=== PATIENT | female | born 1960 | race Two or more races ===

== ENCOUNTER 2019-12-29 09:03 | Emergency (ER) | payer OTHER ==
[~2019-12-29] VITALS: Ht 154.9 cm; Wt 90.7 kg
--- NOTE | 2019-12-29 09:30 | NUR ---
PT BIB HIS NEIGHBOR AND . C/O CHEST PAIN 07/01. VS CHECKED. HOOKED ON MONITOR EKG DONE. AWAITING MD HAM
--- NOTE | 2019-12-29 09:40 | NUR ---
COVID SWAB DONE. SENT TO LAB.
--- NOTE | 2019-12-29 09:40 | NUR ---
Alessandra ozuna in ED - 12/29/19 at 0943 by KEYSHA YANELIS DAY DONE AWAITING MD HAM.
--- NOTE | 2019-12-29 09:42 | NUR ---
Chest Xray in progress at BS.
[2019-12-29 09:48] LABS: BASOPHILS # (AUTO) 0.1 /CMM (0.0-0.2); BASOPHILS % (AUTO) 0.7 % (0.0-2.0); EOSINOPHILS % (AUTO) 1.2 % (0.0-6.0); HEMATOCRIT 37 % (33-45); HEMOGLOBIN 12.1 g/dL (11.5-14.8); LYMPHOCYTES # (AUTO) 2.9 /CMM (0.8-4.8); LYMPHOCYTES % (AUTO) 36.4 % (20.0-44.0); MEAN CORPUSCULAR HGB CONC 33 g/dl (31.0-36.0); MEAN CORPUSCULAR VOLUME 89 fL (82-100); MONOCYTES # (AUTO) 0.3 /CMM (0.1-1.30); MONOCYTES % (AUTO) 3.8 % (2.0-12.0); NEUTROPHILS # (AUTO) 4.6 /CMM (1.8-8.9); NEUTROPHILS % (AUTO) 57.9 % (43.0-81.0); PLATELET COUNT (AUTO) 304 /CMM (150-450); RED BLOOD CELL COUNT(AUTO) 4.11 MIL/uL (4.0-5.2); WHITE BLOOD COUNT (AUTO) 7.9 K/uL (4.3-11.0)
[2019-12-29 09:57] LABS: CALCIUM, SERUM 9.6 mg/dL (8.5-10.1); CARBON DIOXIDE 23 mmol/L (21-32); CHLORIDE 103 mmol/L (98-107); CREATININE 0.9 mg/dL (0.6-1.3); GLUCOSE 106 mg/dL (74-106); POTASSIUM 4.6 mmol/L (3.5-5.1); SODIUM SERUM 139 mmol/L (136-145); UREA NITROGEN, BLOOD 22 mg/dL (7-18)
[2019-12-29 10:03] LABS: ALANINE AMINOTRANSFERASE 35 U/L (12-78); ALBUMIN 4.2 g/dL (3.4-5.0); ALKALINE PHOSPHATASE 62 U/L (46-116); ASPARTATE AMINOTRANSFERASE 13 U/L (15-37); BILIRUBIN,TOTAL 0.2 mg/dL (0.2-1.0); TOTAL PROTEIN, SERUM 8.5 g/dL (6.4-8.2)
[2019-12-29] MEDS ORDERED: ASPIRIN 81 MG TAB.CHEW PO ONE (10:30)
--- NOTE | 2019-12-29 11:00 | NUR ---
COVID RESULT: NEGATIVE
--- NOTE | 2019-12-29 11:29 | NUR ---
RECIEVED A CALL FROM [employer] FOR TRANSFER INFO. PT HAS BEEN ACCEPTED AT [facility]. PATIENT IS GOING TO ROOM 180. NUMBER FOR REPORT IS, . AMBULANCE AUTHORIZATION NUMBER IS, [id number].
--- NOTE | 2019-12-29 11:40 | NUR ---
DR. MCFARLANE SPOKE TO PT REGARDING GEETING ADMITTED TO [facility] WITH [employer] [employer]. HOWEVER, PT DOES NOT WANT TO GET ADMITTED AND WANTS TO GO AMA.
--- NOTE | 2019-12-29 11:52 | NUR ---
Patient discharged ama in stable condition. Written and verbal after care instructions given. Patient verbalizes understanding of instruction. pt does not want to get admitted. pt signed ama form. IV removed. Catheter intact and site benign. Pressure and 4x4 applied to site. No bleeding noted.
[2019-12-29 11:54] VITALS: BP 112/81
== END 2019-12-29 11:55 | disposition left against medical advice (07) ==
LOC: ER 09:16
DX: R07.9 Chest pain, unspecified (principal); I10 Essential (primary) hypertension; Z20.828 Contact with and (suspected) exposure to other viral communicable diseases; E11.9 Type 2 diabetes mellitus without complications; E78.00 Pure hypercholesterolemia, unspecified; Z82.49 Family history of ischemic heart disease and other diseases of the circulatory system; R79.89 Other specified abnormal findings of blood chemistry
CPT/HCPCS: 36415; 71045; 80048; 80076; 84484; 85025; 85378; 87426; 93005; 99285; C9803